=== PATIENT | female | born 2000 | race Hispanic/Latino ===

== ENCOUNTER 2021-06-06 11:39 | Inpatient (IN) | payer OTHER ==
[~2021-06-06 11:39] MED LIST: Bupivacaine 0.25% HCL 30 ML VIAL ONE
[2021-06-06] MEDS ORDERED: Acetaminophen 500 MG TAB PO PRN (12:11)
[2021-06-06] MEDS ORDERED: Butorphanol Tartrate 1 MG/ML VIAL SLOW IVP PRN (12:11)
[2021-06-06] MEDS ORDERED: Ondansetron PF 4 MG/2 ML Vial IVP PRN ×3 (12:11→14:21)
[2021-06-06] MEDS ORDERED: hydrALAZINE 20 MG/ML VIAL SLOW IVP PRN (12:11)
[2021-06-06] MEDS ORDERED: Lidocaine 1% (PF) 30 ML VIAL SC PRN (12:11)
[2021-06-06] MEDS ORDERED: HYDROcodone/Acetaminophen 5/325 mg Tablet PO PRN (12:11)
[2021-06-06] MEDS ORDERED: Methylergonovine 0.2 MG/ML VIAL IM PRN (12:11)
[2021-06-06] MEDS ORDERED: Promethazine HCl 25 MG/ML VIAL IM PRN ×3 (12:11→14:21)
[2021-06-06] MEDS ORDERED: Diphenoxylate HCl/Atropine Tablet PO PRN ×2 (12:11)
[2021-06-06] MEDS ORDERED: Carboprost 250 MCG/ML AMP IM PRN (12:11)
[2021-06-06] MEDS ORDERED: Ibuprofen 800 MG TAB PO PRN (12:11)
[2021-06-06] MEDS ORDERED: Misoprostol 200 MCG TAB PR PRN (12:11)
[2021-06-06] MEDS ORDERED: Docusate 100 MG CAP PO PRN (12:11)
[2021-06-06] MEDS ORDERED: Lactated Ringer's 1,000 ML IV SCH (12:15)
[2021-06-06] MEDS ORDERED: NS w/ Oxytocin 30 units 500 ML IVPB SCH (12:15)
[2021-06-06] MEDS ORDERED: NS w/ Oxytocin 30 units 500 ML IV SCH ×2 (12:15)
[2021-06-06 12:19] VITALS: BMI 35.3
[2021-06-06 12:27] LABS: Hemoglobin 11.4 g/dL (12.0-15.5); Mean Corpuscular HGB CONC 33.7 g/dL (32.0-36.0); Mean Corpuscular Hemoglobin 30.3 pg (27.0-33.0); Mean Corpuscular Volume 89.9 fl (81.6-98.3); Mean Platelet Volume 11.6 fl (7.4-10.4); Platelet Count 217 10x3/uL (150-450); RBC Distribution Width 12.3 % (11.5-14.5); Red Blood Cell (RBC) Count 3.76 10x6/uL (3.90-5.03)
[2021-06-06 13:02] LABS: Hep B Surf Ag Non-Reactive S/CO (NonReactive)
[2021-06-06 13:07] LABS: HBSAg Index 0.19 S/CO (0-0.99)
[2021-06-06 13:39] LABS: Syphilis Antibody Nonreactive (Nonreactive); Syphilis Antibody Index 0.06 S/CO (<1.00 Non-Reactive)
[2021-06-06] MEDS ORDERED: Fentanyl 2 mcg/Bup 0.1% Cadd 100 ML ONE (13:48)
[2021-06-06] MEDS ORDERED: Naloxone HCl 0.4 mg/ml Vial IV PRN (14:19)
[2021-06-06] MEDS ORDERED: Promethazine HCl 25 MG SUPP PR PRN (14:19)
[2021-06-06] MEDS ORDERED: Ketorolac Tromethamine 30 MG/ML VIAL IVP PRN (14:19)
[2021-06-06] MEDS ORDERED: Naloxone HCl 0.4 mg/ml Vial IVP PRN ×4 (14:19→14:21)
[2021-06-06] MEDS ORDERED: Fentanyl 100 MCG/2 ML VIAL SLOW IVP PRN (14:19)
[2021-06-06] MEDS ORDERED: Hydrocerin (Eucerin) Cream 120 gm Jar TOP PRN ×2 (14:19→14:21)
[2021-06-06] MEDS ORDERED: diphenhydrAMINE 50 MG/ML VIAL IVP PRN ×2 (14:19→14:21)
[2021-06-06] MEDS ORDERED: Ondansetron HCl/PF 4 MG/2 ML Vial IVP PRN (14:19)
[2021-06-06] MEDS ORDERED: Meperidine HCl/PF 25 MG/ML VIAL SLOW IVP PRN (14:19)
[2021-06-06] MEDS ORDERED: Acetaminophen 325 MG TAB PO PRN (14:21)
[2021-06-06] MEDS ORDERED: ePHEDrine Sulfate 50 MG/10 ML VIAL SLOW IVP PRN (14:21)
[2021-06-06] MEDS ORDERED: Lactated Ringer's 500 ML IV PRN (14:21)
[2021-06-06] MEDS ORDERED: Communication Order-Pharmacy FS SCH ×2 (14:30)
[2021-06-06] MEDS ORDERED: Fentanyl 2 mcg/Bupivacaine 0.1% Cassette 100 ML EPIDURAL SCH (14:30)
[2021-06-06] MEDS ORDERED: Ketorolac Tromethamine 30 MG/ML VIAL IVP SCH (14:30)
[2021-06-06] MEDS ORDERED: Misoprostol 200 MCG TAB ONE (18:51)
[2021-06-07] MEDS ORDERED: Ondansetron PF 4 MG/2 ML Vial IVP PRN (03:15)
[2021-06-07] MEDS ORDERED: Boostrix 0.5 ML (Tdap) VIAL IM ONE (03:15)
[2021-06-07] MEDS ORDERED: NS w/ Oxytocin 30 units 500 ML IV SCH (03:15)
[2021-06-07] MEDS ORDERED: Methylergonovine 0.2 MG/ML VIAL IM PRN (03:15)
[2021-06-07] MEDS ORDERED: Lanolin Ointment 7 GM TUBE TOP PRN (03:15)
[2021-06-07] MEDS ORDERED: Measles/Mumps/Rubella 10 MCG/0.5 ML VIAL SC ONE (03:15)
[2021-06-07] MEDS ORDERED: Simethicone Chewable 80 MG TAB PO PRN (03:15)
[2021-06-07] MEDS ORDERED: HYDROcodone/Acetaminophen 5/325 mg Tablet PO PRN (03:15)
[2021-06-07] MEDS ORDERED: Zolpidem Tartrate 5 MG TAB PO PRN (03:15)
[2021-06-07] MEDS ORDERED: Bisacodyl 10 MG SUPP PR PRN (03:15)
[2021-06-07] MEDS ORDERED: diphenhydrAMINE 25 MG CAP PO PRN (03:15)
[2021-06-07] MEDS ORDERED: Promethazine HCl 25 MG/ML VIAL IM PRN (03:15)
[2021-06-07] MEDS ORDERED: hydrALAZINE 20 MG/ML VIAL SLOW IVP PRN (03:15)
[2021-06-07] MEDS ORDERED: Varicella virus, LIVE 0.5 ML VIAL SC ONE (03:15)
[2021-06-07 03:41] LABS: SARS-CoV-2 NAA Rapid Test Not Detected (NotDetected)
[2021-06-07] MEDS: Ibuprofen 800 MG TAB PO SCH ×3 (05:15→21:36)
[2021-06-07 06:21] LABS: Hemoglobin 10.6 g/dL (12.0-15.5); Mean Corpuscular HGB CONC 33.7 g/dL (32.0-36.0); Mean Corpuscular Hemoglobin 30.6 pg (27.0-33.0); Mean Platelet Volume 11.8 fl (7.4-10.4); Platelet Count 202 10x3/uL (150-450); RBC Distribution Width 12.3 % (11.5-14.5); Red Blood Cell (RBC) Count 3.46 10x6/uL (3.90-5.03); White Blood Cell (WBC) Count 13.7 10x3/uL (3.5-10.5)
[2021-06-07] MEDS: Docusate Calcium (SURFAK) 240 MG CAP PO SCH ×2 (08:52→21:36)
[2021-06-07] MEDS: Prenatal Vitamin 1 TAB PO SCH (08:52)
[2021-06-07] MEDS ORDERED: Ferrous Sulfate 325 MG TAB PO SCH (09:00)
[2021-06-08] MEDS: Ibuprofen 800 MG TAB PO SCH (06:22)
[2021-06-08] MEDS: Docusate Calcium (SURFAK) 240 MG CAP PO SCH (09:32)
[2021-06-08] MEDS: Prenatal Vitamin 1 TAB PO SCH (09:32)
[2021-06-08 11:50] VITALS: BP 111/57; TEMP 98.7
== END 2021-06-08 11:40 | disposition home or self-care (01) | DRG 807 ==
LOC: CSHLD 11:39 → CSHPED 06-07 00:05
PROVIDERS: ADMIT Obstetrics & Gynecology; ATTEND Obstetrics & Gynecology
PROC: 10907ZC Drainage of Amniotic Fluid, Therapeutic from Products of Conception, Via Natural or Artificial Opening (ICD-10-PCS; principal; 2021-06-06)
PROC: 10E0XZZ Delivery of Products of Conception, External Approach (ICD-10-PCS; 2021-06-06)
PROC: 0KQM0ZZ Repair Perineum Muscle, Open Approach (ICD-10-PCS; 2021-06-06)
DX: O69.1XX0 Labor and delivery complicated by cord around neck, with compression, not applicable or unspecified (principal); Z37.0 Single live birth; O70.1 Second degree perineal laceration during delivery; Z3A.37 37 weeks gestation of pregnancy; Z20.822 Contact with and (suspected) exposure to COVID-19
CPT/HCPCS: 36415; 85027; 86780; 86850; 86900; 86901; 87340; J1200; J2590; J7120; S0020; U0002